=== PATIENT | female | born 1990 | race Hispanic/Latino ===

== ENCOUNTER 2022-10-03 20:10 | Observation (INO) | payer OTHER ==
[2022-10-03] MEDS ORDERED: Ondansetron PF 4 MG/2 ML Vial ONE (21:07)
[2022-10-03] MEDS ORDERED: Morphine 4 MG/ML VIAL ONE (21:07)
[2022-10-03] MEDS ORDERED: Piperacillin/Tazobactam 3.375 GM VIAL ONE (21:07)
[2022-10-03] MEDS ORDERED: Morphine 4 MG/ML VIAL SLOW IVP PRN (21:21)
[2022-10-03] MEDS ORDERED: Ondansetron ODT 4 MG TAB SL PRN (21:30)
[2022-10-03] MEDS ORDERED: Ondansetron PF 4 MG/2 ML Vial IVP PRN (21:30)
[2022-10-03] MEDS: Sodium Chloride 0.9% 1,000 ML IV SCH (23:29)
[2022-10-04] VITALS: BMI 37.2
[2022-10-04 00:21] LABS: SARS-CoV-2 NAA Rapid Test Not Detected (NotDetected)
[2022-10-04] MEDS ORDERED: Piperacillin/Tazobactam 3.375 GM in Sodium Chloride 0.9% 100 ML IVPB SCH (02:00)
[2022-10-04] MEDS ORDERED: Morphine 4 MG/ML VIAL SLOW IVP PRN (04:28)
[2022-10-04] MEDS: Sodium Chloride 0.9% 1,000 ML IV SCH ×3 (08:10→21:44)
[2022-10-04] MEDS: Piperacillin/Tazobactam 3.375 GM in Sodium Chloride 0.9% 100 ML IVPB SCH ×2 (11:45→21:23)
[2022-10-04] MEDS ORDERED: Ondansetron PF 4 MG/2 ML Vial ONE ×2 (12:28→13:53)
[2022-10-04] MEDS ORDERED: Iopamidol 30 ML FS ONE (13:04)
[2022-10-04] MEDS ORDERED: Bupivacaine/Epinephrine 0.25% 30 ML VIAL ONE ×2 (13:04→14:12)
[2022-10-04] MEDS ORDERED: Fentanyl 100 MCG/2 ML VIAL ONE (13:44)
[2022-10-04] MEDS ORDERED: Promethazine HCl 25 MG/ML VIAL ONE (13:49)
[2022-10-04] MEDS ORDERED: Famotidine/PF 20 mg/2ml Vial ONE (13:49)
[2022-10-04] MEDS ORDERED: Scopolamine 1.5 mg/72 hour Patch ONE (13:49)
[2022-10-04] MEDS ORDERED: PROPOFOL 200 MG/20 ML VIAL ONE (13:53)
[2022-10-04] MEDS ORDERED: Rocuronium Bromide 10 MG/ML (10ML VIAL) ONE (13:53)
[2022-10-04] MEDS ORDERED: Ketorolac Tromethamine 30 MG/ML VIAL ONE (13:53)
[2022-10-04] MEDS ORDERED: Esmolol 100 MG/10 ML VIAL ONE (13:53)
[2022-10-04] MEDS ORDERED: Dexamethasone 20 MG/5 ML VIAL ONE (13:53)
[2022-10-04] MEDS ORDERED: Albuterol Sulfate HFA (OR ONLY) ONE (13:53)
[2022-10-04] MEDS ORDERED: HYDROcodone/Acetaminophen 7.5/325 mg Tablet PO PRN (14:58)
[2022-10-04] MEDS ORDERED: Promethazine HCl 25 MG/ML VIAL IM PRN (15:29)
[2022-10-04] MEDS ORDERED: Promethazine HCl 25 MG/ML VIAL IVPB PRN (15:29)
[2022-10-04] MEDS ORDERED: HYDROmorphone 2 MG/ML VIAL SLOW IVP PRN (15:29)
[2022-10-04] MEDS ORDERED: PACU-Morphine 4MG/ML VIAL SLOW IVP PRN (15:29)
[2022-10-04] MEDS ORDERED: Ondansetron HCl/PF 4 MG/2 ML Vial IVP PRN (15:29)
[2022-10-04] MEDS ORDERED: Morphine Sulfate 2 MG/ML SYRINGE SLOW IVP PRN (15:29)
[2022-10-05] MEDS: Piperacillin/Tazobactam 3.375 GM in Sodium Chloride 0.9% 100 ML IVPB SCH ×2 (04:11→13:52)
[2022-10-05] MEDS: Sodium Chloride 0.9% 1,000 ML IV SCH ×2 (04:37→13:52)
[2022-10-05 12:05] VITALS: BP 105/71; TEMP 98.5
== END 2022-10-05 14:25 | disposition home or self-care (01) ==
LOC: ERS 20:10 → SURG A 21:15
PROVIDERS: ADMIT Surgery; ATTEND Surgery
PROC: 0FT44ZZ Resection of Gallbladder, Percutaneous Endoscopic Approach (ICD-10-PCS; principal; 2022-10-04)
PROC: BF101ZZ Fluoroscopy of Bile Ducts using Low Osmolar Contrast (ICD-10-PCS; 2022-10-04)
DX: K80.00 Calculus of gallbladder with acute cholecystitis without obstruction (principal); K83.8 Other specified diseases of biliary tract; K74.60 Unspecified cirrhosis of liver; Z20.822 Contact with and (suspected) exposure to COVID-19
CPT/HCPCS: 47532; 76705; 88304; 96365; 96366; 96367; 96375; 96376; C1889; G0378; J1100; J1610; J1885; J2270; J2405; J2543; J2550; J2704; J3010; J3490; J7050; Q9966; S0028; U0002